=== PATIENT | female | born 1985 | race Hispanic/Latino ===

== ENCOUNTER 2019-03-03 01:23 | Inpatient (IN) | payer OTHER ==
[2019-03-03 02:25] VITALS: BMI 25.9
[2019-03-03] MEDS ORDERED: Acetaminophen 500 MG TAB PO PRN (02:46)
[2019-03-03] MEDS ORDERED: hydrALAZINE 20 MG/ML VIAL SLOW IVP PRN ×2 (02:46→15:11)
[2019-03-03] MEDS ORDERED: NS / Oxytocin 40 units/1000ml 1,000 ML IV PRN (02:46)
[2019-03-03] MEDS ORDERED: Ondansetron PF 4 MG/2 ML Vial IVP PRN ×3 (02:46→15:11)
[2019-03-03] MEDS ORDERED: Docusate 100 MG CAP PO PRN (02:46)
[2019-03-03] MEDS ORDERED: Promethazine HCl 25 MG/ML VIAL IM PRN ×2 (02:46→04:27)
[2019-03-03] MEDS ORDERED: Misoprostol 200 MCG TAB PR PRN (02:46)
[2019-03-03] MEDS ORDERED: Ibuprofen 800 MG TAB PO PRN (02:46)
[2019-03-03] MEDS ORDERED: Acetaminophen/Codeine 30-300mg Tablet PO PRN ×2 (02:46)
[2019-03-03] MEDS ORDERED: Carboprost 250 MCG/ML AMP IM PRN (02:46)
[2019-03-03] MEDS ORDERED: Lidocaine 1% (PF) 30 ML VIAL SC PRN (02:46)
[2019-03-03] MEDS ORDERED: Methylergonovine 0.2 MG/ML VIAL IM PRN ×2 (02:46→15:11)
--- NOTE | 2019-03-03 02:51 | PDOC.FPROB ---
FMR OB H&P: HPI - History of Present Illness Chief Complaint: Contractions History of Present Illness: 33 yo @ 37.5 weeks presents for contractions that have increased in intensity and pain, now 12 minutes. Contractions began this morning at 0900. Was seen in clinic, cervical dilated to 3. Denies LOF, VB, VD. Desires epidural. Is in significant discomfort with every contraction. Primary Care Physician: Drew FMR OB H&P: Current - Care : 4 Para: 2011 Gestational age: 37.5 Due date: 03/19/2019 - OB Labs Blood type: O RH: negative Antibody Screen: negative HIV: negative HepBsAg: negative Urine drug screen: negative Gonorrhea: negative Pap Smear: 06/12/2018 1 hour gtt: 78 GBS: negative H&H: 10.230.8 FMR OB H&P: History - Past Medical History PMH: Denies - OB History OB History: vaginal term births 2004, 2006 - Surgical History Sx History: None - Social History Social History: Denies tobacco, alcohol, drug use. - Family History Family History: Denies FMR OB H&P: Medications - Current Home Medications: Medication Instructions Recorded Confirmed Type Iron 18 mg PO DAILY 03/03/19 03/03/19 History Vit 93/Iron Fum/Folic PO DAILY 03/03/19 History [ Formula Tablet] Allergies/Adverse Reactions: Allergies Allergy/AdvReac Type Severity Reaction Status Date / Time No Known Allergies Allergy Unverified 03/03/19 02:22 FMR OB H&P: ROS - Review of Systems Cardiovascular: denies: edema Respiratory: denies: shortness of breath Gastrointestinal: reports: cramping. denies: vomiting Genitourinary (Female): reports: contractions. denies: dysuria, vaginal discharge, vaginal pain, vaginal bleeding, vaginal pressure Neurologic: denies: weakness, headache Integumentary: denies: rash FMR OB H&P: Vital Signs - Maternal Vital signs: Vital Signs - First Documented Temp Pulse Resp BP Pulse Ox 99.0 F 113 H 18 132/74 100 03/03/19 02:20 03/03/19 02:20 03/03/19 02:20 03/03/19 02:20 03/03/19 02:20 - Heart Tones Baseline: 145 Variability: moderate Acceleration: present Deceleration: absent Category: category 1 [place] contractions every: 2-3 min FMR OB H&P: Physical Exam - Physical Exam General: awake, alert and oriented (painful contractions) HEENT: normocephalic and atraumatic, MMM, grossly normal hearing Heart: no edema General: no respiratory distress Abdomen: gravid, non-tender, no masses Musculoskeletal: normal gait and station Skin: no rash, good tugor Psychiatric: normal mood and affect FMR OB H&P: A/P Discussion: Date/Time: 03/03/19 0251 33 yo @ 37.5 presents for contractions. sIUP in labor - Ctx q2-3 min - Cat I strip - consult anesthesia for epidural - GBS negative - /0 @ 0211 Anemia of - Hgb 10.2. Takes PNV and iron supplementation Rh negative status - Rhogam given at 28 weeks Carrier of cystic fibrosis gene mutation - partner neg for CF hydronephrosis - followed with serial US by [facility] showing stable bilateral hydronephrosis. will need renal sono on day 2 of life and f/u with pedi urology outpatient in [place] (referral placed by Dr. Russell) Dispo: admit to L&D for labor This H&P was discussed with Dr. Yeung who agree with the above documentation and plan. Addendum - Attending - Attending Attestation Date/Time: 03/03/19 8523 I personally evaluated the patient and discussed the management with Dr. Starkey. admitted in labor requesting epidural. I agree with the History, Examination, Assessment and Plan documented above.
[2019-03-03] MEDS ORDERED: Lactated Ringer's 1,000 ML IV SCH (03:00)
[2019-03-03 03:24] LABS: Hemoglobin 10.9 g/dL (12.0-16.0); Mean Corpuscular HGB CONC 33.3 g/dL (32.0-36.0); Mean Corpuscular Hemoglobin 26.1 pg (27.0-31.0); Mean Corpuscular Volume 78.4 fL (78.0-98.0); Mean Platelet Volume 8.4 fL (7.4-10.4); Platelet Count 258 thou/uL (130-400); RBC Distribution Width 14.5 % (11.5-14.5); Red Blood Cell (RBC) Count 4.18 mill/uL (4.20-5.40); White Blood Cell (WBC) Count 15.6 thou/uL (4.8-10.8)
[2019-03-03] MEDS ORDERED: Fentanyl 4 mcg/Bup 0.1% Cadd 100 ML ONE (03:31)
[2019-03-03 03:52] LABS: HBSAg Index 0.35 S/CO (0-0.99); Hep B Surf Ag Non-Reactive S/CO (NonReactive)
[2019-03-03] MEDS ORDERED: ePHEDrine/0.9% NaCl/PF SYRINGE 50 mg/10 ml SLOW IVP PRN (04:27)
[2019-03-03] MEDS ORDERED: Acetaminophen 325 MG TAB PO PRN ×2 (04:27→15:11)
[2019-03-03] MEDS ORDERED: diphenhydrAMINE 50 MG/ML VIAL IVP PRN (04:27)
[2019-03-03] MEDS ORDERED: Naloxone HCl 0.4 mg/ml Vial IVP PRN ×2 (04:27)
[2019-03-03] MEDS ORDERED: Lactated Ringer's 500 ML IV PRN (04:27)
[2019-03-03 04:28] LABS: Syphilis Antibody Nonreactive (Nonreactive); Syphilis Antibody Index 0.06 S/CO (<1.00 Non-Reactive)
[2019-03-03] MEDS ORDERED: Communication Order-Pharmacy FS SCH (04:30)
[2019-03-03] MEDS ORDERED: Fentanyl 4 mcg/Bupivacaine 0.1% Cassette 100 ML EPIDURAL SCH (04:30)
--- NOTE | 2019-03-03 05:53 | PDOC.OPDEL ---
OB Operative/Delivery Note Delivery Dr/Surgeon: Anjana Assist: Lalito Pre-Delivery Diagnosis: active labor Procedure/Post Delivery Dx: spontaneous vaginal delivery Weeks gestation: 37 Anesthesia: epidural - Additional Findings/Plan Placenta delivered: spontaneous Repaired Obstetrical Laceration: 2nd degree Estimated blood loss: QBL pending Compilations/Other Findings: Viable male delivered OA Apgars 8/9. Placenta intact Rosanne. 2* midline lac repaired in layers. To recover in L&D. Post delivery plan: routine recovery
[2019-03-03] MEDS ORDERED: Lanolin Ointment 7 GM TUBE TOP PRN (15:11)
[2019-03-03] MEDS ORDERED: Milk Of Magnesia 30 ML UDCUP PO PRN (15:11)
[2019-03-03] MEDS ORDERED: Bisacodyl 10 MG SUPP PR PRN (15:11)
[2019-03-03] MEDS ORDERED: Benzocaine-Menthol 82.5 ML CAN TOP PRN (15:11)
[2019-03-03] MEDS ORDERED: Misoprostol 200 MCG TAB VAG PRN (15:11)
[2019-03-03] MEDS ORDERED: Preparation H Ointment 28 GM TUBE PR PRN (15:11)
[2019-03-03] MEDS ORDERED: NS / Oxytocin 40 units/1000ml 1,000 ML IV SCH (15:11)
[2019-03-03] MEDS ORDERED: Ibuprofen 800 MG TAB PO SCH (15:30)
[2019-03-03] MEDS ORDERED: Sodium Chloride 0.9% 10 ML ONE (16:31)
[2019-03-03] MEDS: Ferrous Sulfate 325 MG TAB PO SCH (16:59)
[2019-03-03] MEDS: Ibuprofen 800 MG TAB PO SCH (21:08)
[2019-03-03] MEDS: Docusate Calcium (SURFAK) 240 MG CAP PO SCH (21:08)
--- NOTE | 2019-03-04 05:44 | PDOC.EVN ---
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 Proceeded to on 03/04/19. I evaluated the patient at bedside 03/04/19 and found her stable for DC to home. patient desires DC to home. course complicated by bilateral hydronephrosis...baby to have outpatient urology follow up for care. Plan on PM discharge on 03/04/19
[2019-03-04] MEDS: Ibuprofen 800 MG TAB PO SCH ×2 (05:51→16:57)
[2019-03-04 08:39] VITALS: BP 121/66; TEMP 98.6
[2019-03-04] MEDS ORDERED: Prenatal Vitamin 1 TAB PO SCH (09:00)
[2019-03-04] MEDS: Ferrous Sulfate 325 MG TAB PO SCH (10:00)
[2019-03-04] MEDS: Docusate Calcium (SURFAK) 240 MG CAP PO SCH (10:00)
== END 2019-03-04 18:40 | disposition home or self-care (01) | DRG 807 ==
LOC: L&D/OP 01:23 → L&D-LIB 03:04 → 3SW 15:07
PROVIDERS: ADMIT Student in an Organized Health Care Education/Training Program; ATTEND Student in an Organized Health Care Education/Training Program
PROC: 10E0XZZ Delivery of Products of Conception, External Approach (ICD-10-PCS; principal; 2019-03-03)
PROC: 0KQM0ZZ Repair Perineum Muscle, Open Approach (ICD-10-PCS; 2019-03-03)
DX: O99.02 Anemia complicating childbirth (principal); Z37.0 Single live birth; Z3A.37 37 weeks gestation of pregnancy; O35.8XX0 Maternal care for other (suspected) fetal abnormality and damage, not applicable or unspecified; D64.9 Anemia, unspecified; O70.1 Second degree perineal laceration during delivery
CPT/HCPCS: 36415; 51702; 85027; 85461; 86780; 86850; 86870; 86900; 86901; 87340; 90384; 96372; 99285; J2001